=== PATIENT | male | born 1950 | race Caucasian/White ===

== ENCOUNTER 2019-07-29 13:17 | Outpatient (CLI) | payer MEDICARE, OTHER, SELFPAY ==
--- NOTE | 2019-07-29 13:20 | CT_ITS ---
WS: [id number] CT ABDOMEN WITHOUT CONTRAST HISTORY: ABDOMINAL PAIN Contiguous single phase 5 mm axial imaging performed through the abdomen. Oral contrast has been prov ided. Coronal and sagittal reformats are submitted. All CT scans at [facility] use at [address] one of these dose optimization techniques: automated exposure control; mA and/or kV adjustment per patient size (includes targeted exams where dose is matched to clinical indication); or iterative re construction. CONTRAST: None DLP: 1042.41 mGy.cm COMPARISON: None available. Lower thorax: Moderate calcification in the LEFT anterior descending coronary artery. No hiatal herni a. Liver: Surface of the liver is irregular in the liver is small and shrunken. No bile duct dilatation or mass. Gallbladder: Status post cholecystectomy. Pancreas: Normal. Spleen: Normal. Adrenals: Normal. Right kidney: Perinephric stranding with no obstruction. No mass or calcification. Left kidney: Perinephric stranding with no mass or calcification or obstruction. Aorta: Mild atherosclerosis with no aneurysm. GI tract: As visualized through the abdomen no abnormality. There are a few diverticula noted within the descending colon. The appendix is partially visualized and normal. No adenopathy or free fluid. Abdominal wall: Fat-containing umbilical hernia. Visualized osseous structures: Mild anterior wedging T10 and T11. Slight increase in the lumbar lordo sis. CT/CT abdomen wo con [id number] IMPRESSION: 1. Suspect changes of cirrhosis. 2. Prior cholecystectomy. 3. Moderate coronary artery calcifications. 4. Umbilical hernia contains fat only.
[2019-07-29] MEDS: iohexol 300 mg/mL 50 mL Btl PO (13:29)
== END 2019-07-29 13:18 | disposition home or self-care (01) ==
LOC: CT 13:17
PROVIDERS: Family Provider Nurse Practitioner; PCP Nurse Practitioner; Visit Provider Nurse Practitioner
DX: I25.10 Atherosclerotic heart disease of native coronary artery without angina pectoris (principal); K42.9 Umbilical hernia without obstruction or gangrene
CPT/HCPCS: 74150

== ENCOUNTER 2020-05-17 11:07 | Outpatient (CLI) | payer MEDICARE, OTHER, SELFPAY ==
--- NOTE | 2020-05-17 | XR_ITS ---
WS: [id number] Lumbar spine, standing AP, lateral and neutral, flexion and extension, and L5-S1 spot. 05/17/2020 Clinical Data: NEOROPATHY OF FOOT, PAIN IN RT UPPER THIGH Comparison: None. Findings: No compression fractures or subluxation is seen. No disc space narrowing is seen. The transverse proc esses and SI joints are normal. No limitation of motion or subluxation occurs on flexion or extension. XR/XR lumbar spine min 4V [id number] Impression: 1. Negative lumbar spine. 2. Negative for limitation of motion or subluxation on flexion or extension.
== END 2020-05-17 11:08 | disposition home or self-care (01) ==
PROVIDERS: PCP Nurse Practitioner; Visit Provider Nurse Practitioner Family
DX: G57.90 Unspecified mononeuropathy of unspecified lower limb (principal); M79.651 Pain in right thigh
CPT/HCPCS: 72114

== ENCOUNTER 2021-05-14 12:28 | Outpatient (CLI) | payer MEDICARE, OTHER, SELFPAY ==
[2021-05-14 12:44] VITALS: BP 113/69; PULSE 49; RESP 20; TEMP 36.7; O2SAT 95; BMI 39.5
[2021-05-14 13:08] VITALS: BP 113/59; PULSE 56; RESP 18; O2SAT 99
[2021-05-14 14:08] VITALS: BP 110/65; PULSE 75; RESP 20; TEMP 36.6; O2SAT 95
== END 2021-05-14 12:29 | disposition home or self-care (01) ==
LOC: OPS 12:33
PROVIDERS: PCP Nurse Practitioner; Visit Provider Nurse Practitioner Family
DX: U07.1 COVID-19 (principal)
CPT/HCPCS: 96365

== ENCOUNTER → 2022-05-30 14:18 | Outpatient (BNVA) | payer MEDICARE, OTHER, SELFPAY | PROVIDERS: PCP Nurse Practitioner; Visit Provider Emergency Medicine | DX: S99.912A Unspecified injury of left ankle, initial encounter (principal); X58.XXXA Exposure to other specified factors, initial encounter | CPT/HCPCS: 73610 ==

== ENCOUNTER 2022-11-21 11:08 | Outpatient (CLI) | payer MEDICARE, OTHER, SELFPAY ==
--- NOTE | 2022-11-21 11:20 | XR_ITS ---
WS: [id number] Thoracic spine, 3 views, 11/21/2022 Clinical Data: Fall Comparison: None. Findings: There is loss of anterior vertebral body height of T9-T12 of less than 25% which represent old wedge compression fractures. The paravertebral regions are normal. There is minimal osteoarthritic spurring of T9-T12. A pacemaker wire in the heart is present. There are cholecystectomy clips in the right up per quadrant. XR/XR thoracic spine 2V [id number] Impression: 1. Minimal anterior wedge compression fractures T9-T12 of indeterminate age. 2. Mild osteoarthritis T9-T12.
== END 2022-11-21 11:09 | disposition home or self-care (01) ==
LOC: RAD 11:16
PROVIDERS: Visit Provider Registered Nurse Neonatal Intensive Care
DX: S22.070A Wedge compression fracture of T9-T10 vertebra, initial encounter for closed fracture (principal); S22.080A Wedge compression fracture of T11-T12 vertebra, initial encounter for closed fracture; W19.XXXA Unspecified fall, initial encounter; M47.814 Spondylosis without myelopathy or radiculopathy, thoracic region
CPT/HCPCS: 72070

== ENCOUNTER 2025-04-07 12:38 | Outpatient (CLI) | payer MEDICARE, OTHER, SELFPAY ==
--- NOTE | 2025-04-07 12:49 | XR_ITS ---
WS: [id number] Right knee, AP and lateral views, 04/07/2025 Clinical Data: PAIN IN R KNEE Comparison: None. Findings: No fractures or dislocations are seen. The joint spaces are normal. The patella is intact. The soft tissues are unremarkable. XR/XR knee RT 1-2V [id number] Impression: Negative right knee.
--- NOTE | 2025-04-07 12:49 | XR_ITS ---
WS: [id number] Right hip, AP and frog-leg views, 04/07/2025 Clinical Data: R HIP PAIN Comparison: None. Findings: No fractures or dislocations are seen. The right hip shows no erosion, narrowing, sclerosis, cyst formation or fragmentation of the right femoral head. The soft tissues are not remarkable. The adjacent pelvis is normal. XR/XR hip RT 2-3V wo/w pel* [id number] Impression: Negative right hip.
== END 2025-04-07 12:39 | disposition home or self-care (01) ==
PROVIDERS: PCP Nurse Practitioner Family; Visit Provider Nurse Practitioner Family
DX: M25.551 Pain in right hip (principal); M25.561 Pain in right knee
CPT/HCPCS: 73502; 73560